=== PATIENT | female | born 1955 | race Caucasian/White ===

== ENCOUNTER → 2021-09-01 | Outpatient (CLI) | payer MEDICARE ==
[2021-09-01 15:28] VITALS: BP 148/82; PULSE 70; RESP 16; TEMP 98.3
--- NOTE | 2021-09-01 17:53 | P.HPOB ---
History of Present Illness H&P Date: 09/01/21 Chief Complaint: The patient is here for her routine gynecologic exam. This is a 65-year-old with an LMP of approximately 2001. She is status post a PATRICIO/BSO in 2001 for abnormal bleeding. Hysterectomy was benign. The patient states it is been about 1 year since her last pelvic exam. She previously was seen at [facility] by Dr. Liz and she was last seen by him in 2011. She moved to [place] and recently moved back to [place] 2 months ago. She has been experiencing it an intermittent vaginal odor with a fishy smell. She has noticed this during the past 3 months. She denies any significant discharge. She does not know if the odor is from slight urinary leakage. She has had occasional vulvar itching or irritation. She has not been sexually active for several years. Review of Systems The patient has gained 15 pounds over the last year. She denies respiratory, cardiac, or G.I. problems. 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 Osteoporosis treated with Fosamax for 2 years in the past. Seasonal ALLERGIES. Nasal herpes. Sciatica. 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 History of Any Multi-Drug Resistant Organisms: None Reported Past Surgical History: Breast Surgery, Hysterectomy, Tonsillectomy Additional Past Surgical History / Comment(s): PATRICIO/BSO 2001. Left breast lumpectomy 2013. Nasal septum surgery. Colonoscopy 2011. Past Psychological History: Depression Smoking Status: Never smoker Past Alcohol Use History: Occasional (3-4 per week) Past Drug Use History: None Reported Additional History: She is and 2019 and this was her third marriage. 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 - Past Family History Mother Family Medical History: CVA/TIA, Hypertension Additional Family Medical History / Comment(s): Bipolar disorder. Father Family Medical History: Cancer, CVA/TIA Additional Family Medical History / Comment(s): Alcohol abuse. Pharyngeal CA. Medications and Allergies Home Medications Medication Instructions Recorded Confirmed Type Albuterol Sulfate [Albuterol 90 mcg NASAL DAILY PRN 09/01/21 09/01/21 History Sulfate Hfa] DULoxetine HCL [Cymbalta] 30 mg PO DAILY 09/01/21 09/01/21 History Fluticasone Propionate [Flovent 110 mcg NASAL DAILY PRN 09/01/21 09/01/21 History Hfa 110 mcg] Fluticasone Propionate 50 mcg NASAL DAILY 09/01/21 09/01/21 History [Fluticasone Propionate [place]] Gabapentin [Neurontin] 100 mg PO DIRECTED PRN 09/01/21 09/01/21 History Montelukast [Singulair] 10 mg PO DAILY 09/01/21 09/01/21 History Valsartan/Hydrochlorothiazide 80 mg PO DAILY 09/01/21 09/01/21 History [Valsartan-Hctz 80-12.5 mg Tab] valACYclovir HCL [Valtrex] 1,000 mg PO DAILY PRN 09/01/21 09/01/21 History Allergies Allergy/AdvReac Type Severity Reaction Status Date / Time latex Allergy Rash/Hives Unverified 09/01/21 15:03 codeine AdvReac Unknown Unverified 09/01/21 15:03 colistin [From Coly-Mycin S] AdvReac Nausea Unverified 09/01/21 15:03 hydrocortisone AdvReac Nausea Unverified 09/01/21 15:03 [From Coly-Mycin S] neomycin [From Coly-Mycin S] AdvReac Nausea Unverified 09/01/21 15:03 thonzonium bromide AdvReac Nausea Unverified 09/01/21 15:03 [From Coly-Mycin S] Exam Vital Signs Temp Pulse Resp BP Pulse Ox 09/01/21 15:22 98.3 F 70 16 148/82 99 Intake and Output 09/01/21 09/01/21 09/01/21 06:59 14:59 22:59 Other: Weight 70.307 kg Height 5 feet 1-1/2 inches, weight 155 pounds, BMI 28.8. This is a well-developed well-nourished white female who is alert and oriented times 3 in no acute distress. HEENT: Within normal limits. NECK: Supple without mass or thyromegaly. CHEST AND LUNGS: Clear to auscultation. HEART: Regular rate and rhythm. BREASTS: Are without mass or discharge. There is a dimpled area in the left upper outer quadrant consistent with her previous lumpectomy. AXILLARY EXAM: Negative for adenopathy. BACK: Negative for CVA tenderness. ABDOMEN: Soft, nontender, without palpable masses. PELVIC EXAM: External genitalia appears normal. Vagina appears normal with a minimal amount of grayish mucousy discharge.. There is no evidence of prolapse. Bimanual examination is negative for mass or tenderness. RECTAL EXAM: Rectovaginal exam is negative for mass or tenderness and is negative for occult blood. EXTREMITIES: Nontender. IMPRESSION: 1. 65-year-old menopausal female status post PATRICIO/BSO for benign reasons recent intermittent vaginal odor per the patient. She has a minimal mucus-type discharge without noticeable odor. 2. History of left breast carcinoma in situ with no evidence of recurrence on exam today. 3. Elevated blood pressure. PLAN: 1. Pap smears have been discontinued. 2. Her last mammogram was done in [place] and she believes it was in December 2020. In order slip for this years mammogram will be given to the patient. She states she has records of when her last mammogram was done and she will schedule it for 1 year after her last mammogram. She believes her last mammogram was normal. 3. I recommended that she check her own blood pressures at home. She will follow-up with Dr. Short for blood pressure elevations. 4. Osteoporosis prevention was discussed. I have stressed the importance of adequate calcium, vitamin D and regular exercise. Recommended amounts of calcium and vitamin D were also discussed. She states she had a bone density test done last year and she states it showed osteopenia. This was after she was treated with Fosamax for 2 years for osteoporosis. I have recommended that she repeat the bone density test approximately 2 years after her last one, which will be about next year. 5. I recommended screening colonoscopy since her last one was about 10 years ago. She will discuss this with her PCP. 6. She has completed her Covid vaccination series. She did receive a booster. 7. Affirm vaginitis panel was obtained. She will be treated accordingly. She was advised to avoid over washing with soap. 8. She was advised to return in one year for her annual well woman exam.
[2021-09-02 14:35] LABS: Gardnerella Negative (Negative); Source Vagina; Trichomonas Negative (Negative)
== END | disposition home or self-care (01) ==
LOC: WWCWWP 14:52
PROVIDERS: ATTEND Obstetrics & Gynecology
DX: Z01.419 Encounter for gynecological examination (general) (routine) without abnormal findings (principal)
CPT/HCPCS: 87480; 87510; 87660

== ENCOUNTER → 2022-01-27 | Outpatient (CLI) | payer MEDICARE ==
--- NOTE | 2022-01-27 13:27 | MM ---
Reason for Exam: Follow-up at short interval from prior study. Last mammogram was performed 6 year(s) and 2 month(s) ago. Patient History: Menarche at age 12. First Full-Term at age 28. Left ovary removed at age 46. Right ovary removed at age 46. Hysterectomy at age 46. Postmenopausal. Other cancer, age 51. Breast cancer, age 57. Estrogen for 10 years from age 46 until age 57. , Benign Cyst Aspiration. 2013, Lumpectomy on the Left side. 1987, Implant Removal. 1986, Implant(s). Tissue Density: The breast tissue is heterogeneously dense. This may lower the sensitivity of mammography. Findings: Analyzed By CAD. Surgical changes from lumpectomy with clips and distortion in the posterior upper outer aspect left breast are redemonstrated. A few scattered benign-appearing round calcifications bilaterally are again seen. No suspicious new mass or suspicious cluster of microcalcification in either breast. Overall Assessment: Benign, BI-RAD 2 Management: Screening Mammogram of both breasts in 1 year. A clinical breast exam by your physician is recommended on an annual basis and results should be correlated with mammographic findings. This exam should not preclude additional follow-up of suspicious palpable abnormalities. Results were given to the patient verbally at the time of exam. Electronically signed and approved by: Mohinder Coleman M.D.
== END | disposition home or self-care (01) ==
LOC: RADMAMWWP 12:45
PROVIDERS: ATTEND Obstetrics & Gynecology
DX: Z85.3 Personal history of malignant neoplasm of breast (principal)
CPT/HCPCS: 77066; G0279; 77062